=== PATIENT | male | born 1935 | race Caucasian/White ===

== ENCOUNTER 2017-01-07 19:15 | Inpatient (IN) | payer MEDICARE ==
[~2017-01-07] VITALS: Ht 162.6 cm; Wt 80.6 kg
[2017-01-07 17:26] VITALS: O2SAT 98
[~2017-01-07 19:15] MED LIST: CLOP75 PO; GEMF600T PO; PRIL10CA PO
[2017-01-07 19:17] VITALS: BP 142/65; PULSE 74; RESP 18; TEMP 97.9; O2SAT 95
[2017-01-07] MEDS ORDERED: AMIT10TA6 PO (19:29)
[2017-01-07] MEDS ORDERED: METO-426 PO (19:29)
[2017-01-07] MEDS ORDERED: LIPI40TA PO (19:29)
[2017-01-07] MEDS ORDERED: PLAV75TA29 PO (19:29)
[2017-01-07] MEDS ORDERED: GEMF600T PO (19:29)
[2017-01-07] MEDS ORDERED: OMEP20TA PO (19:29)
[2017-01-07] MEDS ORDERED: ASPI-110 PO (19:29)
[2017-01-07] MEDS ORDERED: SODIUM CHLORIDE 0.9% FLUSH 5 ML FLUSH IVF PRN (19:45)
--- NOTE | 2017-01-07 19:45 | PD ---
HPI Chief Complaint: Chest Pain Time Seen by Provider: 19:34 Travel History International Travel<30 days: No Contact w/Intl Traveler<30days: No Traveled to known affect area: No History of Present Illness HPI The patient's 81 years old. He suffers with COPD (he quit smoking 7 years ago following a [id number] smoking history), coronary artery disease with a stent placed a couple months prior in [place], hypertension, hyperlipidemia and CPAP. He uses oxygen as needed during the day. He uses CPAP at night secondary to sleep apnea. Yesterday he was walking and developed retrosternal chest pain. At its worst the pain was 6-7/10. In the ER the pain is 3/10. He has received a full dose of aspirin today. She also received nitroglycerin given by EMS just prior to ER arrival. He states the chest pain today feels different than the pain he had prior to his stent placement in [place]. He has been compliant with Plavix gemfibrozil Lipitor and metoprolol. There is no radiation of the pain. Exertional component has remained present prior to ER arrival. He also reports a pleuritic component states it feels as if there is a teacher. His chest in the region of the xiphoid process. He also reports fairly persistent phlegm production with coughing for months. He has had bilateral pulmonary lobectomies and also suffers from prostate cancer. [facility] Past Medical History Cardiovascular Problems: Yes High Cholesterol: Yes COPD: Yes Cerebrovascular Accident: Yes GERD: Yes Ulcer: Yes (BLEEDING ULCER) Past Surgical History Cardiac Surgery: Yes (stent in oct 2016) Genitourinary Surgery: Yes (PROSTATE) Other Surgery: Yes (lobectomy one left and two on right) Social History Alcohol Use: No Tobacco Use: No (quit 7 years ago) Substance Use: No Allergies-Medications (Allergen,Severity, Reaction): Coded Allergies: No Known Allergies (Unverified , 01/07/17) Reported Meds & Prescriptions Reported Meds & Active Scripts Active Reported Lipitor (Atorvastatin Calcium) 40 Mg Tab 40 Mg PO HS Aspirin 81 (Aspirin) 81 Mg Tabdr 81 Mg PO DAILY Amitriptyline (Amitriptyline HCl) 10 Mg Tab 10 Mg PO HS Metoprolol Tartrate 75 Mg Tab 75 Mg PO DAILY Plavix (Clopidogrel Bisulfate) 75 Mg Tab 75 Mg PO DAILY Omeprazole 20 Mg Tab 20 Mg PO DAILY Gemfibrozil 600 Mg Tab 600 Mg PO DAILY Take 30 minutes prior to breakfast and dinner. Review of Systems Except as stated in HPI: all other systems reviewed are Neg General / Constitutional: No: Fever, Chills Cardiovascular: Positive: Chest Pain or Discomfort, No: Syncope, Edema Respiratory: Positive: Cough, No: Shortness of Breath Neurologic: Positive: Dizziness Physical Exam Narrative GENERAL: 81-year-old male, no acute distress well-nourished well-developed, speaking full sentences SKIN: Warm and dry. HEAD: Atraumatic. Normocephalic. EYES: Pupils equal and round. No scleral icterus. No injection or drainage. ENT: No nasal bleeding or discharge. Mucous membranes pink and moist. NECK: Trachea midline. No JVD. CARDIOVASCULAR: Regular rate and rhythm. No murmur appreciated. RESPIRATORY: Coarse breath sounds present bilaterally. No tachypnea. No significant dyspnea. GASTROINTESTINAL: Abdomen soft, non-tender, nondistended. Hepatic and splenic margins not palpable. MUSCULOSKELETAL: No obvious deformities. No clubbing. No cyanosis. No edema. No sign of DVT involving either lower extremity. NEUROLOGICAL: Awake and alert. No obvious cranial nerve deficits. Motor grossly within normal limits. Normal speech. PSYCHIATRIC: Appropriate mood and affect; insight and judgment normal. Data Data Last Documented VS Vital Signs Date Time Temp Pulse Resp B/P Pulse Ox O2 Delivery O2 Flow Rate FiO2 01/07/17 21:36 Nasal Cannula 2 01/07/17 21:00 64 128/64 01/07/17 19:22 95 01/07/17 19:17 97.9 18 VS reviewed Orders Electrocardiogram (01/07/17 19:34) Basic Metabolic Panel (Bmp) (01/07/17 19:34) Ckmb (Isoenzyme) Profile (01/07/17 19:34) Complete Blood Count With Diff (01/07/17 19:34) Magnesium (Mg) (01/07/17 19:34) Prothrombin Time / Inr (Pt) (01/07/17 19:34) Act Partial Throm Time (Ptt) (01/07/17 19:34) Troponin I (01/07/17 19:34) Ecg Monitoring (01/07/17 19:34) Bilateral Bp Monitoring (01/07/17 19:34) Iv Access Insert/Monitor (01/07/17 19:34) Oximetry (01/07/17 19:34) Oxygen Administration (01/07/17 19:34) Sodium Chloride 0.9% Flush (Ns Flush) (01/07/17 19:45) Chest, Pa & Lat (01/07/17 19:34) CKMB (01/07/17 19:50) CKMB% (01/07/17 19:50) Ct Pulmonary Angiogram (01/07/17 21:23) Iohexol 350 Inj (Omnipaque 350 Inj) (01/07/17 22:25) Enoxaparin Inj (Lovenox Inj) (01/07/17 23:00) Blood Culture (01/07/17 22:49) Ceftriaxone Inj (Rocephin Inj) (01/07/17 23:00) Azithromycin Inj (Zithromax Inj) (01/07/17 23:00) Admit Order (Ed Use Only) (01/07/17 23:13) Labs Laboratory Tests Test 01/07/17 19:50 White Blood Count 7.4 TH/MM3 Red Blood Count 4.10 MIL/MM3 Hemoglobin 12.6 GM/DL Hematocrit 37.5 % Mean Corpuscular Volume 91.4 FL Mean Corpuscular Hemoglobin 30.7 PG Mean Corpuscular Hemoglobin 33.5 % Concent Red Cell Distribution Width 13.1 % Platelet Count 203 TH/MM3 Mean Platelet Volume 8.7 FL Neutrophils (%) (Auto) 59.4 % Lymphocytes (%) (Auto) 31.7 % Monocytes (%) (Auto) 7.6 % Eosinophils (%) (Auto) 0.6 % Basophils (%) (Auto) 0.7 % Neutrophils # (Auto) 4.4 TH/MM3 Lymphocytes # (Auto) 2.3 TH/MM3 Monocytes # (Auto) 0.6 TH/MM3 Eosinophils # (Auto) 0.0 TH/MM3 Basophils # (Auto) 0.1 TH/MM3 CBC Comment DIFF FINAL Differential Comment Prothrombin Time 11.3 SEC Prothromb Time International 1.0 RATIO Ratio Activated Partial 22.9 SEC Thromboplast Time Sodium Level 142 MEQ/L Potassium Level 3.9 MEQ/L Chloride Level 105 MEQ/L Carbon Dioxide Level 27.2 MEQ/L Anion Gap 10 MEQ/L Blood Urea Nitrogen 14 MG/DL Creatinine 1.11 MG/DL Estimat Glomerular Filtration 63 ML/MIN Rate Random Glucose 108 MG/DL Calcium Level 8.5 MG/DL Magnesium Level 2.2 MG/DL Total Creatine Kinase 134 U/L Creatine Kinase MB 1.5 NG/ML Troponin I LESS THAN 0.02 NG/ML MDM Medical Decision Making Medical Screen Exam Complete: Yes Emergency Medical Condition: Yes Differential Diagnosis NSTEMI, unstable angina, coronary vasospasm, PE, PTX, aortic dissection, pericarditis, myocarditis, endocarditis, PNA, esophageal disease, aneurysm, musculoskeletal etiologies, anxiety, cocaine/sympathomimetic abuse Narrative Course EKG: sinus, HR 70, Q waves II and aVF, no acute ischemic injury pattern Last [address] Angiography 01/07/172122 Signed Impressions: Service Date/Time: Saturday, January 07, 2017 22:00 - CONCLUSION: 1. Small pulmonary emboli on the right. Please see above. 2. Patchy airspace disease posteriorly in both lower lobes, nonspecific but most likely infectious or inflammatory. 3. Trace right pleural effusion. 4. Large hypodense lesion of the left hepatic lobe, indeterminate. Contrast-enhanced study of the abdomen is recommended non-emergently, preferably MRI with and without contrast. Hugh Gallego MD Chest X-Ray 01/07/17 1934 Signed Impressions: Service Date/Time: Saturday, January 07, 2017 20:15 - CONCLUSION: Suspected mass right hilum. CT the chest suggests a, preferably with intravenous contrast. There is mild patchy consolidation of both bases. Hugh Gallego MD CBC & BMP Diagram 01/07/17 19:50 Tn < 0.02 INR 1.0 The patient was notified of the hepatic lesion. We also discussed the diagnosis of PE and pneumonia. Lovenox started. Rocephin and azithromycin started. Case discussed with Dr. Anders for [facility]. Patient has remained hemodynamically stable throughout ER course. His pain improved while here without analgesia. Diagnosis Primary Impression: Chest pain Qualified Code: R07.9 - Chest pain, unspecified type Additional Impressions: PE (pulmonary thromboembolism) PNA (pneumonia) Qualified Code: J18.9 - Pneumonia of both lower lobes due to infectious organism Liver lesion Admitting Information Admitting Physician Requests: Admit Sarath Amador MD Jan 07, 2017 19:45
[2017-01-07 20:04] LABS: AUTOMATED NEUTROPHIL # 4.4 TH/MM3 (1.8-7.7); BASOPHIL # 0.1 TH/MM3 (0-0.2); BASOPHIL % 0.7 % (0.0-2.0); EOSINOPHIL % 0.6 % (0.0-4.0); HEMATOCRIT 37.5 % (39.0-51.0); HEMO FLAGS DIFF FINAL; LYMPH % 31.7 % (9.0-44.0); LYMPHOCYTE # 2.3 TH/MM3 (1.0-4.8); MEAN CELL VOLUME 91.4 FL (80.0-100.0); MEAN CORPUSCULAR HEMOGLOBIN 30.7 PG (27.0-34.0); MEAN CORPUSCULAR HGB CONC 33.5 % (32.0-36.0); MONO % 7.6 % (0.0-8.0); NEUT % 59.4 % (16.0-70.0); PLATELET COUNT 203 TH/MM3 (150-450); RED CELL DISTRIBUTION WIDTH 13.1 % (11.6-17.2); WHITE BLOOD COUNT 7.4 TH/MM3 (4.0-11.0)
[2017-01-07 20:11] LABS: APTT (PATIENT) 22.9 SEC (24.3-30.1); PROTHROMBIN TIME - PATIENT 11.3 SEC (9.8-11.6)
--- NOTE | 2017-01-07 20:28 | RADRPT ---
EXAM DATE/TIME: 01/07/2017 20:15 [facility] COMPARISON: Reports only CTA CHEST W 3D RECON, February 28, 2012, 17:29. CHEST SINGLE AP, February 28, 2012, 13:46. INDICATIONS : Chest pain for the past few days. MEDICAL HISTORY : Chronic obstructive pulmonary disease. Hypercholesterolemia. SURGICAL HISTORY : Cardiac stent. Lobectomy on left and right lobe. ENCOUNTER: Initial ACUITY: 1 day PAIN SCORE: 5/10 LOCATION: Bilateral chest. FINDINGS: There is masslike fullness in the region of the right hilum. There is mild, patchy consolidation of b oth bases. Tiny right pleural effusion suspected as well. No pneumothorax. Heart size within normal limits. CONCLUSION: Suspected mass right hilum. CT the chest suggests a, preferably with intravenous contrast. There is m ild patchy consolidation of both bases. Hugh Glalego MD on January 07, 2017 at 20:25 Board Certified Radiologist. This report was verified electronically.
[2017-01-07 20:49] LABS: ANION GAP 10 MEQ/L (5-15); BICARBONATE 27.2 MEQ/L (21.0-32.0); BLOOD UREA NITROGEN 14 MG/DL (7-18); CHLORIDE 105 MEQ/L (98-107); CREATINE KINASE 134 U/L (39-308); GLOMERULAR FILTRATION RATE 63 ML/MIN (>89); MAGNESIUM 2.2 MG/DL (1.5-2.5); POTASSIUM 3.9 MEQ/L (3.5-5.1); SODIUM (NA) 142 MEQ/L (136-145)
[2017-01-07 21:00] VITALS: BP 128/64; PULSE 64
[2017-01-07 21:02] LABS: CKMB 1.5 NG/ML (0.5-3.6)
[2017-01-07] MEDS ORDERED: IOHEXOL 350 MG/ML 10 ML VIAL (for RAD DIAG) IV ONE (22:25)
--- NOTE | 2017-01-07 22:35 | RADRPT ---
EXAM DATE/TIME: 01/07/2017 22:00 [facility] COMPARISON: Report only CTA CHEST W 3D RECON, February 28, 2012, 17:29. INDICATIONS : Chest pain; rule out pulmonary embolus. IV CONTRAST: 75 cc Omnipaque 350 (iohexol) IV RADIATION DOSE: 13.70 CTDIvol (mGy) MEDICAL HISTORY : Chronic obstructive pulmonary disease. Cardiovascular disease Carcinoma, prostate.CVA, cardiac stent SURGICAL HISTORY : Lobectomy. ENCOUNTER: Initial ACUITY: 1 day PAIN SCALE: 6/10 LOCATION: chest TECHNIQUE: Volumetric scanning of the chest was performed using a pulmonary embolism protocol MIP images were re constructed. Using automated exposure control and adjustment of the mA and/or kV according to patien t size, radiation dose was kept as low as reasonably achievable to obtain optimal diagnostic quality images. FINDINGS: I believe patient has had previous right upper lobectomy. Small amount of nonocclusive embolus seen i n the distal portion of the right main pulmonary artery, series 2 image 53. Small embolus also seen i n the right middle lobe branch, series 2 image 64. I don't see a pulmonary embolus on the left. Patchy areas of parenchymal infiltrate are seen of both lung bases, primarily posteriorly in the lower lobes. There is trace pleural effusion on the right. Normal heart size. There appears to be a stent in the left circumflex. No mediastinal, hilar or axillary lymphadenopathy demonstrated. Upper abdomen only poorly included on the study and there is a vague low attenuation lesion near the dome of the left hepatic lobe, measures at least 5.1 cm in size. This was not mentioned on the p rior CT pulmonary angiogram, presumably not present. CONCLUSION: 1. Small pulmonary emboli on the right. Please see above. 2. Patchy airspace disease posteriorly in both lower lobes, nonspecific but most likely infectious or inflammatory. 3. Trace right pleural effusion. 4. Large hypodense lesion of the left hepatic lobe, indeterminate. Contrast-enhanced study of the abd omen is recommended non-emergently, preferably MRI with and without contrast. Hugh Gallego MD on January 07, 2017 at 22:25 Board Certified Radiologist. This report was verified electronically.
[2017-01-07] MEDS ORDERED: AZITHROMYCIN INJ 500 MG in SODIUM CHLOR 0.9% 250 ML INJ 250 ML IV ONE (23:00)
[2017-01-07] MEDS ORDERED: cefTRIAXone INJ 1,000 MG in SODIUM CHLORIDE 0.9% INJ 100 ML IV ONE (23:00)
[2017-01-07] MEDS ORDERED: ENOXAPARIN SODIUM 80 MG/0.8 ML SYRINGE SQ ONE (23:00)
[2017-01-07] MEDS ORDERED: SODIUM CHLORIDE 0.9% FLUSH 5 ML FLUSH FLUSH PRN (23:30)
[2017-01-07] MEDS ORDERED: ONDANSETRON HCL 4 MG/2 ML VIAL IVP PRN (23:30)
[2017-01-07] MEDS ORDERED: BISACODYL 10 MG SUPP PR PRN (23:30)
[2017-01-07] MEDS ORDERED: ACETAMINOPHEN/HYDROcodone 325 MG/5 MG TAB PO PRN (23:30)
[2017-01-07] MEDS ORDERED: MORPHINE SULFATE 4 MG/ML INJ IV PRN (23:30)
--- NOTE | 2017-01-07 23:38 | HHI.HP ---
[facility] No Primary Care Physician Admission Diagnosis R PE, Bilateral PNA Diagnoses: (1) Chest pain Diagnosis: Principal (2) PE (pulmonary thromboembolism) Diagnosis: Principal (3) PNA (pneumonia) Diagnosis: Principal (4) Lung cancer Diagnosis: Principal (5) Liver lesion Diagnosis: Principal Travel History International Travel<30 Days: No Contact w/Intl Traveler <30 Da: No Traveled to Known Affected Are: No History of Present Illness This is an 81-year-old male with a PMH of Lung CA s/p Lobectomy, COPD, HTN, CAD s/p Stent 10/2016 and h/o DVT 6yrs ago who was brought to the ER by EMS w/ complaints of SOB and chest tightness since yesterday. States he walks 1 mile every day without difficulty, yesterday during his walk had c/o SOB and chest tightness. H/o Cardiac Stent in [place] in 10/2016, compliant w/ ASA/Plavix, states he follows w/ Lining Finisher, Rocket Test Fire Worker and Oncologist up in [place], lives there part of the year and in [facility] the other part of the year. Denies fever, chills or sick contacts. S/p ASA and NTG by EMS w/ some improvement en route. On arrival, BP 142/65, HR 74, O2 sat 95% on RA, Afebrile. CBC essentially unremarkable. Chemistry essentially unremarkable except for GFR 63. Troponin negative. EKG with no acute ischemia. CXR with suspected mass in right hilum, recommendation for CT Chest. CTA Pulm w/ small PE on right, patchy airspace disease bibasilar and large hypodense liver lesion w/ recommendation for outpatient MRI w/ and w/o contrast. Pt reports h/o DVT approx 6yrs ago following Lobectomy, was on Coumadin for 6 months and discontinued, no h/o DVT/ PE since that time. S/p Lovenox 80mg sq x1 in ER. Review of Systems Except as stated in HPI: all other systems reviewed are Neg ROS: 14 point review of systems otherwise negative. Past Family Social History Past Medical History PMH: Lung CA s/p Lobectomy, COPD, HTN, CAD s/p Stent 10/2016 and h/o DVT 6yrs ago Past Surgical History PAST SURGICAL HISTORY: Cardiac Stent 10/2016, Lobectomy Allergies: Coded Allergies: No Known Allergies (Unverified , 01/07/17) Family History PAST FAMILY HISTORY: Reviewed. No h/o DM or CAD Social History PAST SOCIAL HISTORY: Negative for alcohol, tobacco or drugs. Physical Exam Vital Signs Vital Signs Date Time Temp Pulse Resp B/P Pulse Ox O2 Delivery O2 Flow Rate FiO2 01/07/17 21:36 Nasal Cannula 2 01/07/17 21:00 64 128/64 01/07/17 19:22 95 Room Air 01/07/17 19: 97.9 74 18 142/65 95 Physical Exam PE: GENERAL: Pleasant elderly white male in no acute distress, presumably the stated age, intermittent wet cough. HEENT: PERRLA, EOMI. No scleral icterus or conjunctival pallor. No lid lag or facial droop. CARDIOVASCULAR: Regular rate and rhythm. No obvious murmurs to auscultation. No chest tenderness to palpation. RESPIRATORY: Occasional rhonchi, no wheezing. Clear to auscultation. Breath sounds equal bilaterally. GASTROINTESTINAL: Abdomen soft, non-tender, nondistended. BS normal. MUSCULOSKELETAL: Extremities without clubbing, cyanosis, or edema. No obvious deformities. NEUROLOGICAL: Awake, alert and oriented x4. No focal neurologic deficits. Moving both upper and lower extremities spontaneously. Laboratory Laboratory Tests Test 01/07/17 19:50 White Blood Count 7.4 Red Blood Count 4.10 Hemoglobin 12.6 Hematocrit 37.5 Mean Corpuscular Volume 91.4 Mean Corpuscular Hemoglobin 30.7 Mean Corpuscular Hemoglobin 33.5 Concent Red Cell Distribution Width 13.1 Platelet Count 203 Mean Platelet Volume 8.7 Neutrophils (%) (Auto) 59.4 Lymphocytes (%) (Auto) 31.7 Monocytes (%) (Auto) 7.6 Eosinophils (%) (Auto) 0.6 Basophils (%) (Auto) 0.7 Neutrophils # (Auto) 4.4 Lymphocytes # (Auto) 2.3 Monocytes # (Auto) 0.6 Eosinophils # (Auto) 0.0 Basophils # (Auto) 0.1 CBC Comment DIFF FINAL Differential Comment Prothrombin Time 11.3 Prothromb Time International 1.0 Ratio Activated Partial 22.9 Thromboplast Time Sodium Level 142 Potassium Level 3.9 Chloride Level 105 Carbon Dioxide Level 27.2 Anion Gap 10 Blood Urea Nitrogen 14 Creatinine 1.11 Estimat Glomerular Filtration 63 Rate Random Glucose 108 Calcium Level 8.5 Magnesium Level 2.2 Total Creatine Kinase 134 Creatine Kinase MB 1.5 Troponin I LESS THAN 0.02 Result Diagram: 01/07/17194901/07/171949 Assessment and Plan Problem List: (1) Chest pain ICD Code: R07.9 Status: Acute (2) PE (pulmonary thromboembolism) ICD Code: I26.99 Status: Acute (3) PNA (pneumonia) ICD Code: J18.9 Status: Acute (4) Lung cancer ICD Code: C34.90 Status: Acute (5) Liver lesion ICD Code: K76.9 Status: Acute Assessment and Plan A/P: 1. Chest Pain: h/o CAD s/p Cardiac Stent 10/2016 in [place], follows w/ Lining Finisher back home. Chest pain likey secondary to PNA/PE, however will rule out ACS. Initial trop negative, EKG w/ no acute ischemia. Check serial cardiac enzymes, resume home ASA/Plavix, Statin and B-ignacio. MS prn for chest pain. 2. PE: CXR w/ questionable right hilar mass, CTA Pulm w/ small PE on right and patchy airspace disease, images reviewed by me. H/o DVT 6yrs ago following Lobectomy, s/p Coumadin x6 months, no recurrent DVT/PE since that time. + intermittent lower extremity cramping. O2 sat stable. S/p Lovenox 80mg sq x1 in ER, continue w/ Lovenox q12h and initiation of chronic anticoagulation, Symbicort/DuoNeb prn for bronchospasm. Check Echo to eval for right heart strain. 3. PNA: CTA Pulm w/ bibasilar consolidations, +wet non-productive cough on exam and rhonchi, S/p Rocephin/Zithro in ER, continue IV Abx, DuoNeb prn. 4. Lung CA: s/p Lobectomy 6yrs ago, following w/ Oncologist in [place], currently stable per pt. 5. Liver Lesion: CTA Pulm w/ evidence of large hypodense lesion of left hepatic lobe, recommendation for MRI Abd/Pelvis w/ and w/o contrast, findings discussed w/ patient and he is now aware of liver lesion. States he plans to follow up w/ his physicians in [place] when he returns home. 6. DVT Prophylaxis: On Lovenox for acute PE. 7. Social work for d/c planning as needed. 8. Case discussed w/ ER physician at length. Physician Certification 2 Midnight Certification Type: Admission for Inpatient Services Order for Inpatient Services The services are ordered in accordance with Medicare regulations or non- Medicare payer requirements, as applicable. In the case of services not specified as inpatient-only, they are appropriately provided as inpatient services in accordance with the 2-midnight benchmark. Estimated LOS (days): 2 days is the estimated time the patient will need to remain in the hospital, assuming treatment plan goals are met and no additional complications. Post-Hospital Plan: Not yet determined Virgie Anders MD Jan 07, 2017 23:38
[2017-01-08] VITALS (11 sets, daily range): BP systolic 113–152; BP diastolic 60–78; PULSE 63–103; RESP 16–20; TEMP 96.6–98.1; O2SAT 93–100
[2017-01-08] MEDS: RESP: ALBUTEROL 2.5 MG/IPRATROPIUM 0.5 MG NEB (PRN) NEB ×2 (00:40→03:38)
[2017-01-08 05:25] LABS: AUTOMATED NEUTROPHIL # 4.7 TH/MM3 (1.8-7.7); BASOPHIL % 0.5 % (0.0-2.0); EOSINOPHIL % 0.6 % (0.0-4.0); HEMATOCRIT 37.3 % (39.0-51.0); HEMO FLAGS DIFF FINAL; LYMPH % 30.6 % (9.0-44.0); LYMPHOCYTE # 2.4 TH/MM3 (1.0-4.8); MEAN CELL VOLUME 90.7 FL (80.0-100.0); MEAN CORPUSCULAR HEMOGLOBIN 30.7 PG (27.0-34.0); MEAN CORPUSCULAR HGB CONC 33.8 % (32.0-36.0); MONO % 9.7 % (0.0-8.0); NEUT % 58.6 % (16.0-70.0); PLATELET COUNT 200 TH/MM3 (150-450); RED BLOOD COUNT 4.11 MIL/MM3 (4.50-5.90); RED CELL DISTRIBUTION WIDTH 13.1 % (11.6-17.2); WHITE BLOOD COUNT 7.9 TH/MM3 (4.0-11.0)
[2017-01-08 05:35] LABS: ALT (GPT) 21 U/L (12-78); ANION GAP 9 MEQ/L (5-15); AST (GOT) 12 U/L (15-37); BICARBONATE 25.8 MEQ/L (21.0-32.0); BLOOD UREA NITROGEN 13 MG/DL (7-18); CHLORIDE 107 MEQ/L (98-107); GLOMERULAR FILTRATION RATE 71 ML/MIN (>89); POTASSIUM 3.6 MEQ/L (3.5-5.1); SODIUM (NA) 142 MEQ/L (136-145)
[2017-01-08 05:48] LABS: ALKALINE PHOSPHATASE 60 U/L (45-117); TOTAL BILIRUBIN ADULT 0.5 MG/DL (0.2-1.0)
[2017-01-08] MEDS: METOPROLOL TARTRATE 25 MG TAB PO SCH ×2 (09:00→20:50)
[2017-01-08] MEDS ORDERED: METOPROLOL TARTRATE 25 MG TAB PO SCH (09:00)
[2017-01-08] MEDS: CLOPIDOGREL 75 MG TAB PO SCH (09:00)
--- NOTE | 2017-01-08 09:24 | HHI.PR ---
Subjective Remarks Says he feels much better. Less sob. Has cough , clear sputum production no bloof in it. No chest rush . No n/v/d/c. Sas he has O2 at home and is using as need. Says he has been on coumadin before and had to stay in the hospital for 21 days for INR to be therapeutic, and he did not like it. Discussed options to anticoagulation. Objective Vitals Vital Signs Date Time Temp Pulse Resp B/P Pulse Ox O2 Delivery O2 Flow Rate FiO2 01/08/17 06:05 96.8 90 19 152/77 96 01/08/17 04:00 82 16 115/74 98 01/08/17 00:41 97 Nasal Cannula 2.00 01/08/17 00:00 68 16 120/70 98 Nasal Cannula 2 01/07/17 21:36 Nasal Cannula 2 01/07/17 21:00 64 128/64 01/07/17 19:22 95 Room Air 01/07/17 19:17 97.9 74 18 142/65 95 I/O 01/07/17 01/07/17 01/07/17 01/08/17 01/08/17 01/08/17 07:00 15:00 23:00 07:00 15:00 23:00 Intake Total 120 ml Balance 120 ml Intake Oral 120 ml Result Diagram: 01/08/1731101/08/[address] Angiography 01/07/172122 Signed Impressions: Service Date/Time: Saturday, January 07, 2017 22:00 - CONCLUSION: 1. Small pulmonary emboli on the right. Please see above. 2. Patchy airspace disease posteriorly in both lower lobes, nonspecific but most likely infectious or inflammatory. 3. Trace right pleural effusion. 4. Large hypodense lesion of the left hepatic lobe, indeterminate. Contrast-enhanced study of the abdomen is recommended non-emergently, preferably MRI with and without contrast. Hugh Gallego MD Chest X-Ray 01/07/171933 Signed Impressions: Service Date/Time: Saturday, January 07, 2017 20:15 - CONCLUSION: Suspected mass right hilum. CT the chest suggests a, preferably with intravenous contrast. There is mild patchy consolidation of both bases. Hugh Gallego MD Objective Remarks GENERAL: Pleasant elderly 81 yo male in no acute distress, appears tired. HEENT: PERRLA, EOMI. No scleral icterus or conjunctival pallor. No lid lag or facial droop. CARDIOVASCULAR: Regular rate and rhythm. No obvious murmurs to auscultation. No chest tenderness to palpation. RESPIRATORY: Occasional rhonchi, no wheezing. Clear to auscultation. Breath sounds equal bilaterally. GASTROINTESTINAL: Abdomen soft, non-tender, nondistended. BS normal. MUSCULOSKELETAL: Extremities without clubbing, cyanosis, or edema. No obvious deformities. NEUROLOGICAL: Awake, alert and oriented x4. No focal neurologic deficits. Moving both upper and lower extremities spontaneously. A/P Problem List: (1) Chest pain ICD Code: R07.9 Status: Acute (2) PE (pulmonary thromboembolism) ICD Code: I26.99 Status: Acute (3) PNA (pneumonia) ICD Code: J18.9 Status: Acute (4) Lung cancer ICD Code: C34.90 Status: Acute (5) Liver lesion ICD Code: K76.9 Status: Acute Assessment and Plan Chest Pain, pleuritic: h/o CAD s/p Cardiac Stent 10/2016 in [place], follows w/ Feed Preparation Operator back home. Chest pain likey secondary to PNA/PE, however will rule out ACS. Initial trop negative, EKG w/ no acute ischemia. Check serial cardiac enzymes, resume home ASA/Plavix, Statin and B-ignacio. MS prn for chest pain. PE: CXR w/ questionable right hilar mass, CTA Pulm w/ small PE on right and patchy airspace disease, images reviewed by me. H/o DVT 6yrs ago following Lobectomy, s/p Coumadin x6 months, no recurrent DVT/PE since that time. + intermittent lower extremity cramping. O2 sat stable. S/p Lovenox 80mg sq x1 in ER, continue w/ Lovenox q12h and initiation of chronic anticoagulation, Symbicort/DuoNeb prn for bronchospasm. Check Echo to eval for right heart strain. PNA: CTA Pulm w/ bibasilar consolidations, +wet non-productive cough on exam and rhonchi, S/p Rocephin/Zithro in ER, continue IV Abx, DuoNeb prn. Lung CA: s/p Lobectomy 6yrs ago, following w/ Oncologist in [place], currently stable per pt. Chronic respiratory failure. Cont O2 supplement. Liver Lesion: CTA Pulm w/ evidence of large hypodense lesion of left hepatic lobe, recommendation for MRI Abd/Pelvis w/ and w/o contrast, findings discussed w/ patient and he is now aware of liver lesion. States he plans to follow up w / his physicians in [place] when he returns home. DVT Prophylaxis: On Lovenox for acute PE. Cm for d/c planning as needed. Discussed with the patient, nurse. Ava Chavez MD Jan 08, 2017 09:24
[2017-01-08] MEDS: PANTOPRAZOLE SOD 20 MG DELAYED RELEASE TAB PO SCH (09:34)
[2017-01-08] MEDS: SODIUM CHLORIDE 0.9% FLUSH 5 ML FLUSH FLUSH SCH ×2 (09:35→20:49)
[2017-01-08] MEDS: ASPIRIN EC 81 MG TABEC PO SCH (09:35)
[2017-01-08] MEDS: BUDESONIDE-FORMOTEROL 160/4.5 MCG INHALER INH SCH ×2 (09:35→20:49)
[2017-01-08] MEDS: GEMFIBROZIL 600 MG TAB PO SCH (09:35)
[2017-01-08] MEDS: ENOXAPARIN SODIUM 80 MG/0.8 ML SYRINGE SQ SCH ×2 (11:18→23:37)
[2017-01-08] MEDS ORDERED: RESP: ALBUTEROL 2.5 MG/IPRATROPIUM 0.5 MG NEB (PRN) NEB (13:30)
[2017-01-08] MEDS: ACETAMINOPHEN 325 MG TAB PO PRN ×2 (16:16→23:38)
--- NOTE | 2017-01-08 19:20 | EKG ---
Date Performed: 01/07/2017 Time Performed: 19:17:05 PTAGE: 81 years EKG: Sinus rhythm LOW QRS VOLTAGE IN PRECORDIAL LEADS POSSIBLE INFERIOR MYOCARDIAL INFARCTION SINCE PREVIOUS TRACING 0 02/28/2012, Q WAVES IS MUCH DEEPER IN LEADS 3 AND THERE IS NOW A TINY Q-WAVE IN LEAD AVF. THIS IS NOT A CERTAINITY FOR INFERIOR MYOCARDIAL INFARCTION, BUT AT LEAST SHOULD BE CONSIDERED. OTHERWISE NO FRAIRE GE. BORDERLINE ECG PREVIOUS TRACING : 02/28/2012 21.34 DOCTOR: Michele Quiroga Interpretating Date/Time 01/08/2017 19:19:24
[2017-01-08] MEDS: AMITRIPTYLINE HCL 10 MG TAB PO SCH (20:50)
[2017-01-08] MEDS: ATORVASTATIN 40 MG TAB PO SCH (20:50)
[2017-01-08] MEDS: AZITHROMYCIN INJ 500 MG in SODIUM CHLOR 0.9% 250 ML INJ 250 ML IV SCH (23:40)
[2017-01-09] VITALS: BP 136/68; PULSE 67; RESP 17; TEMP 96.7; O2SAT 97
[2017-01-09] MEDS: cefTRIAXone INJ 1,000 MG in SODIUM CHLORIDE 0.9% INJ 100 ML IV SCH ×2 (01:24→21:54)
[2017-01-09 04:00] VITALS: BP 118/64; PULSE 64; RESP 19; TEMP 96.6; O2SAT 98
[2017-01-09 07:12] LABS: AUTOMATED NEUTROPHIL # 3.5 TH/MM3 (1.8-7.7); BASOPHIL % 0.8 % (0.0-2.0); EOSINOPHIL # 0.1 TH/MM3 (0-0.4); EOSINOPHIL % 1.9 % (0.0-4.0); HEMATOCRIT 36.9 % (39.0-51.0); HEMO FLAGS DIFF FINAL; LYMPH % 27.4 % (9.0-44.0); LYMPHOCYTE # 1.6 TH/MM3 (1.0-4.8); MEAN CELL VOLUME 91.1 FL (80.0-100.0); MEAN CORPUSCULAR HEMOGLOBIN 30.6 PG (27.0-34.0); MEAN CORPUSCULAR HGB CONC 33.5 % (32.0-36.0); MONO % 10.9 % (0.0-8.0); PLATELET COUNT 199 TH/MM3 (150-450); RED BLOOD COUNT 4.05 MIL/MM3 (4.50-5.90); RED CELL DISTRIBUTION WIDTH 13.4 % (11.6-17.2)
[2017-01-09] MEDS ORDERED: CEFT500T3 PO (07:14)
[2017-01-09] MEDS ORDERED: RIVA1TAB PO (07:14)
--- NOTE | 2017-01-09 07:16 | HHI.DCPOC ---
Discharge Care Plan Goals to Promote Your Health * To prevent worsening of your condition and complications * To maintain your health at the optimal level Directions to Meet Your Goals Take your medications as prescribed Follow your dietary instruction Follow activity as directed Keep your appointments as scheduled Take your immunizations and boosters as scheduled If your symptoms worsen call your PCP, if no PCP go to Urgent Care Center or Emergency Room Smoking is Dangerous to Your Health. Avoid second hand smoke Call the 24-hour hour crisis hotline for domestic abuse at Ava Chavez MD Jan 09, 2017 07:16
--- NOTE | 2017-01-09 07:16 | HHI.DS ---
Discharge Summary Admission Date Jan 07, 2017 at 23:14 Discharge Date: Jan 10, 2017 Admitting Diagnosis R PE, Bilateral PNA (1) Chest pain ICD Code: R07.9 (2) PE (pulmonary thromboembolism) ICD Code: I26.99 (3) PNA (pneumonia) ICD Code: J18.9 (4) Lung cancer ICD Code: C34.90 (5) Liver lesion ICD Code: K76.9 Procedures none Brief History - From Admission This is an 81-year-old male with a PMH of Lung CA s/p Lobectomy, COPD, HTN, CAD s/p Stent 10/2016 and h/o DVT 6yrs ago who was brought to the ER by EMS w/ complaints of SOB and chest tightness since yesterday. States he walks 1 mile every day without difficulty, yesterday during his walk had c/o SOB and chest tightness. H/o Cardiac Stent in [place] in 10/2016, compliant w/ ASA/Plavix, states he follows w/ Middle School Director, Manager [employer] and Oncologist up in [place], lives there part of the year and in [facility] the other part of the year. Denies fever, chills or sick contacts. S/p ASA and NTG by EMS w/ some improvement en route. On arrival, BP 142/65, HR 74, O2 sat 95% on RA, Afebrile. CBC essentially unremarkable. Chemistry essentially unremarkable except for GFR 63. Troponin negative. EKG with no acute ischemia. CXR with suspected mass in right hilum, recommendation for CT Chest. CTA Pulm w/ small PE on right, patchy airspace disease bibasilar and large hypodense liver lesion w/ recommendation for outpatient MRI w/ and w/o contrast. Pt reports h/o DVT approx 6yrs ago following Lobectomy, was on Coumadin for 6 months and discontinued, no h/o DVT/ PE since that time. S/p Lovenox 80mg sq x1 in ER. CBC/BMP: 01/09/17 0535 01/08/17 0312 Significant Findings Laboratory Tests Test 3/09/1501/08/17 01/08/17 01/09/17 19:50 00:15 03:12 05:35 Red Blood Count 4.10 MIL/MM3 4.11 MIL/MM3 4.05 MIL/MM3 (4.50-5.90) (4.50-5.90) (4.50-5.90) Hemoglobin 12.6 GM/DL 12.6 GM/DL 12.4 GM/DL (13.0-17.0) (13.0-17.0) (13.0-17.0) Hematocrit 37.5 % 37.3 % 36.9 % (39.0-51.0) (39.0-51.0) (39.0-51.0) Activated Partial 22.9 SEC Thromboplast Time (24.3-30.1) Estimat Glomerular Filtration 63 ML/MIN (>89) 71 ML/MIN (>89) Rate Random Glucose 108 MG/DL 116 MG/DL (74-106) (74-106) Troponin I LESS THAN 0.02 LESS THAN 0.02 LESS THAN 0.02 NG/ML NG/ML NG/ML (0.02-0.05) (0.02-0.05) (0.02-0.05) Monocytes (%) (Auto) 9.7 % (0.0-8.0) 10.9 % (0.0-8.0) Aspartate Amino Transf 12 U/L (15-37) (AST/SGOT) Imaging Last Impressions CT Angiography 01/07/172122 Signed Impressions: Service Date/Time: Saturday, January 07, 2017 22:00 - CONCLUSION: 1. Small pulmonary emboli on the right. Please see above. 2. Patchy airspace disease posteriorly in both lower lobes, nonspecific but most likely infectious or inflammatory. 3. Trace right pleural effusion. 4. Large hypodense lesion of the left hepatic lobe, indeterminate. Contrast-enhanced study of the abdomen is recommended non-emergently, preferably MRI with and without contrast. Hugh Gallego MD Chest X-Ray 01/07/17 193 Signed Impressions: Service Date/Time: Saturday, January 07, 2017 20:15 - CONCLUSION: Suspected mass right hilum. CT the chest suggests a, preferably with intravenous contrast. There is mild patchy consolidation of both bases. Hugh Gallego MD PE at Discharge GENERAL: Pleasant elderly 81 yo male in no acute distress, appears tired. HEENT: PERRLA, EOMI. No scleral icterus or conjunctival pallor. No lid lag or facial droop. CARDIOVASCULAR: Regular rate and rhythm. No obvious murmurs to auscultation. No chest tenderness to palpation. RESPIRATORY: Occasional rhonchi, no wheezing. Clear to auscultation. Breath sounds equal bilaterally. GASTROINTESTINAL: Abdomen soft, non-tender, nondistended. BS normal. MUSCULOSKELETAL: Extremities without clubbing, cyanosis, or edema. No obvious deformities. NEUROLOGICAL: Awake, alert and oriented x4. No focal neurologic deficits. Moving both upper and lower extremities spontaneously. Pt update on day of discharge Feels much better. Ambulating in the room . No n/v/d/c. Denies chest pain. SOB improved. Clear sputum production no blood in it. Says he wants to follow up with his lung doctor, cardiology and oncology in [place] Hospital Course 50yo female with right hydronephrosis and RLQ pain and mass Right lower quadrant abdominal pain Right lower cystic abd mass Right hydronephrosis ESRD on HD M/W/F night CT Ab/Pel reviewed findings discussed with Er physician. Mild right hydronephrosis and hydroureter, no obstructing stone. Some thickening noted on distal ureter. 4.5cm right inguinal cystic mass. Right lower abdominal mass 4.5 cm cyctic mass less likely to cause right hydronephrosis. Seen by Dr Odonnell urology, appreciate recommendations Per Dr Odonnell urology patient would benefit from a Nuclear medicine renal scan or CT Urogram to assess for obstruction, however given her ESRD and HD, this study would likely offer limited benefit Getting HD Consult nephrology for HD Consult urology Consult gen surg for evaluation of mass Pain meds per pain scale DVt ppx with heparin Discussed Condition With patient, nurse Patient improved, he was discharged in fairly stable condition. Patient was adviced to follow up as OP with his PCP, pulm doctor, cardiology and with his hem/onc , all his doctors are in [place]. Patient says he will live to [place] in 2 weeks. Pt Condition on Discharge: Fair Discharge Disposition: Disch w/ Home Health Serv Discharge Time: > 30 minutes Discharge Instructions Follow up Referrals: PCP Follow-up - 3-5 Days Pulmonology - 1 Week New Medications: Cefuroxime (Ceftin) 500 Mg Tab 500 MG PO BID Infection #14 Ref 0 TAB Guaifenesin ER 12 HR (Mucinex ER 12 HR) 600 Mg Chata 600 MG PO BID Chest Congestion/Cough #10 Ref 0 TAB Rivaroxaban Starter Pack 15 & 20 mg (Xarelto Starter Pack 15 & 20 mg) 1 Tab Tab 1 TAB PO DIRECTED Blood Clot Prevention #60 Ref 0 PACK Continued Medications: Amitriptyline (Amitriptyline) 10 Mg Tab 10 MG PO HS Control Depression #30 Ref [address] (Aspirin 81) 81 Mg Tabdr 81 MG PO DAILY Ref 0 TAB Atorvastatin (Lipitor) 40 Mg Tab 40 MG PO HS Cholesterol Management #30 Ref 0 TAB Clopidogrel (Plavix) 75 Mg Tab 75 MG PO DAILY Blood Clot Prevention #30 Ref 0 TAB Gemfibrozil (Gemfibrozil) 600 Mg Tab 600 MG PO DAILY Take 30 minutes prior to breakfast and dinner. #60 Ref 0 TAB Metoprolol Tartrate (Metoprolol Tartrate) 75 Mg Tab 25 MG PO BID #30 Ref 0 TAB Omeprazole (Omeprazole) 20 Mg Tab 20 MG PO DAILY #30 Ref 0 TAB Ava Chavez MD Jan 09, 2017 07:16
--- NOTE | 2017-01-09 07:19 | HHI.FF ---
Face to Face Verification Diagnosis: (1) PE (pulmonary thromboembolism) (2) Lung cancer (3) Chest pain (4) Liver lesion (5) PNA (pneumonia) Physical Therapy Order: Evaluate and Treat Home Health Nursing Order: Medical education Signs/symptoms of disease process Medication education-adverse effect Nursing assessment with vital signs I have seen patient Agustin Delgado on 01/09/17. My clinical findings support the need for the requested home health care services because: Ltd mobility - disease progression Patient has SOB I certify that my clinical findings support that this patient is homebound because: Post-op weakness Ava Chavez MD Jan 09, 2017 07:19 Ava Chavez MD Jan 09, 2017 07:19
[2017-01-09 07:24] LABS: BICARBONATE 26.6 MEQ/L (21.0-32.0); POTASSIUM 3.9 MEQ/L (3.5-5.1)
[2017-01-09 08:00] VITALS: BP 127/70; PULSE 84; RESP 18; TEMP 97.6; O2SAT 97
[2017-01-09] MEDS ORDERED: MUCI600T PO (08:18)
[2017-01-09] MEDS: BUDESONIDE-FORMOTEROL 160/4.5 MCG INHALER INH SCH ×2 (09:17→21:56)
[2017-01-09] MEDS: GEMFIBROZIL 600 MG TAB PO SCH (09:17)
[2017-01-09] MEDS: SODIUM CHLORIDE 0.9% FLUSH 5 ML FLUSH FLUSH SCH ×2 (09:17→21:59)
[2017-01-09] MEDS: ASPIRIN EC 81 MG TABEC PO SCH (09:17)
[2017-01-09] MEDS: PANTOPRAZOLE SOD 20 MG DELAYED RELEASE TAB PO SCH (09:18)
[2017-01-09] MEDS: METOPROLOL TARTRATE 25 MG TAB PO SCH ×2 (09:18→21:56)
[2017-01-09] MEDS: CLOPIDOGREL 75 MG TAB PO SCH (09:18)
[2017-01-09] MEDS: ENOXAPARIN SODIUM 80 MG/0.8 ML SYRINGE SQ SCH ×2 (11:52→22:00)
[2017-01-09 12:00] VITALS: BP 121/69; PULSE 84; RESP 18; TEMP 95.5; O2SAT 97
--- NOTE | 2017-01-09 12:32 | HHI.PR ---
Subjective Remarks Says she feels tired and he is sob. not much cough but feels congested. cough is clear. No fever or chills. Says he doesn't feel comfortable to go home. Will consult PT Objective Vitals Vital Signs Date Time Temp Pulse Resp B/P Pulse Ox O2 Delivery O2 Flow Rate FiO2 01/09/17 08:00 97.6 84 18 127/70 97 01/09/17 04:00 96.6 64 19 118/64 98 01/09/17 00:00 96.7 67 17 136/68 97 01/08/17 20:07 76 01/08/17 20:00 96.6 72 18 136/69 100 01/08/17 15:50 97.9 77 20 120/78 95 01/08/17 14:05 76 I/O 01/08/17 01/08/17 01/08/17 01/09/17 01/09/17 01/09/17 07:00 15:00 23:00 07:00 15:00 23:00 Intake Total 120 ml 360 ml 480 ml 860 ml 360 ml Balance 120 ml 360 ml 480 ml 860 ml 360 ml Intake Oral 120 ml 360 ml 480 ml 480 ml 360 ml IV Total 380 ml # Voids 2 3 3 1 # Bowel Movements 0 Result Diagram: 01/09/17 0535 01/09/17 [address] Angiography 01/07/172122 Signed Impressions: Service Date/Time: Saturday, January 07, 2017 22:00 - CONCLUSION: 1. Small pulmonary emboli on the right. Please see above. 2. Patchy airspace disease posteriorly in both lower lobes, nonspecific but most likely infectious or inflammatory. 3. Trace right pleural effusion. 4. Large hypodense lesion of the left hepatic lobe, indeterminate. Contrast-enhanced study of the abdomen is recommended non-emergently, preferably MRI with and without contrast. Hugh Gallego MD Chest X-Ray 01/07/17 193 Signed Impressions: Service Date/Time: Saturday, January 07, 2017 20:15 - CONCLUSION: Suspected mass right hilum. CT the chest suggests a, preferably with intravenous contrast. There is mild patchy consolidation of both bases. Hugh Gallego MD Objective Remarks GENERAL: Pleasant elderly 81 yo male in no acute distress, appears tired. HEENT: PERRLA, EOMI. No scleral icterus or conjunctival pallor. No lid lag or facial droop. CARDIOVASCULAR: Regular rate and rhythm. No obvious murmurs to auscultation. No chest tenderness to palpation. RESPIRATORY: Occasional rhonchi, no wheezing. Clear to auscultation. Breath sounds equal bilaterally. GASTROINTESTINAL: Abdomen soft, non-tender, nondistended. BS normal. MUSCULOSKELETAL: Extremities without clubbing, cyanosis, or edema. No obvious deformities. NEUROLOGICAL: Awake, alert and oriented x4. No focal neurologic deficits. Moving both upper and lower extremities spontaneously. A/P Problem List: (1) Chest pain ICD Code: R07.9 Status: Acute (2) PE (pulmonary thromboembolism) ICD Code: I26.99 Status: Acute (3) PNA (pneumonia) ICD Code: J18.9 Status: Acute (4) Lung cancer ICD Code: C34.90 Status: Acute (5) Liver lesion ICD Code: K76.9 Status: Acute Assessment and Plan Chest Pain, pleuritic: h/o CAD s/p Cardiac Stent 10/2016 in [place], follows w/ [employer] back home. Chest pain likey secondary to PNA/PE, however will rule out ACS. Initial trop negative, EKG w/ no acute ischemia. Check serial cardiac enzymes, resume home ASA/Plavix, Statin and B-ignacio. MS prn for chest pain. PE: CXR w/ questionable right hilar mass, CTA Pulm w/ small PE on right and patchy airspace disease, images reviewed by me. H/o DVT 6yrs ago following Lobectomy, s/p Coumadin x6 months, no recurrent DVT/PE since that time. + intermittent lower extremity cramping. O2 sat stable. S/p Lovenox 80mg sq x1 in ER, continue w/ Lovenox q12h and initiation of chronic anticoagulation, Symbicort/DuoNeb prn for bronchospasm. Check Echo to eval for right heart strain. PNA: CTA Pulm w/ bibasilar consolidations, +wet non-productive cough on exam and rhonchi, S/p Rocephin/Zithro in ER, continue IV Abx, DuoNeb prn. Lung CA: s/p Lobectomy 6yrs ago, following w/ Oncologist in [place], currently stable per pt. Chronic respiratory failure. Cont O2 supplement. Liver Lesion: CTA Pulm w/ evidence of large hypodense lesion of left hepatic lobe, recommendation for MRI Abd/Pelvis w/ and w/o contrast, findings discussed w/ patient and he is now aware of liver lesion. States he plans to follow up w / his physicians in [place] when he returns home. Consult PT DVT Prophylaxis: On Lovenox for acute PE. Cm for d/c planning as needed. Discussed with the patient, nurse. Ava Chavez MD Jan 09, 2017 12:32
[2017-01-09 16:00] VITALS: BP 110/61; PULSE 66; RESP 18; TEMP 96.5; O2SAT 99
--- NOTE | 2017-01-09 16:04 | EC ---
Study Study Date:01/09/2017 STUDY CONCLUSIONS SUMMARY - Left ventricle: The cavity size was normal. Wall thickness was normal. Systolic function was normal. The estimated ejection fraction was in the range of 55% to 60%. Wall motion was normal; there were no regional wall motion abnormalities. Doppler parameters are consistent with abnormal left ventricular relaxation (grade 1 diastolic dysfunction). - Tricuspid valve: Mild regurgitation. - Pulmonary arteries: PA peak pressure: 43mm Hg (S). If LV function is below 40, please consider prescribing an ACEI or ARB or document rationale for non-use. PROCEDURE DATA STUDY STATUS: Elective. Procedure: Transthoracic echocardiography. Image quality was good. Scanning was performed from the parasternal, apical, and subcostal acoustic windows. Study completion: The patient tolerated the procedure well. Transthoracic echocardiography. M-mode, complete 2D, complete spectral Doppler, and color Doppler. Height: Height: 64in. Weight: Weight: 175.6lb. Body mass index: BMI: 30.2kg/m^2. Body surface area: BSA: 1.85m^2. Patient status: Inpatient. CARDIAC ANATOMY LEFT VENTRICLE: The cavity size was normal. Wall thickness was normal. There was no hypertrophy. Systolic function was normal. The estimated ejection fraction was in the range of 55% to 60%. Wall motion was normal; there were no regional wall motion abnormalities. Doppler parameters are consistent with abnormal left ventricular relaxation (grade 1 diastolic dysfunction). AORTIC VALVE: The valve appears to be grossly normal. Doppler: There was no stenosis. No significant regurgitation. Valve area: 1.65cm^2(VTI). Indexed valve area: 0.89cm^2/m^2 (VTI). Valve area: 1.68cm^2 (Vmax). Indexed valve area: 0.91cm^2/m^2 (Vmax). Mean gradient: 3mm Hg (S). MITRAL VALVE: The valve appears to be grossly normal. Doppler: There was no evidence for stenosis. Trace regurgitation. Peak gradient: 2mm Hg (D). LEFT ATRIUM: The atrium was normal in size. RIGHT VENTRICLE: The cavity size was normal. PULMONIC VALVE: Not well visualized. Doppler: There was no evidence for stenosis. Trace regurgitation. TRICUSPID VALVE: The valve appears to be grossly normal. Doppler: There was no evidence for stenosis. Mild regurgitation. PERICARDIUM: There was no pericardial effusion. Patient weight: 175.6lb _Ejection fraction:_ 65-75% _Fractional shortening:_ 32% up to 5Kg 5-11.5Kg 11.6-22.9Kg 23-45Kg 45-57Kg Aortic Root 7-13 <17 13-22 17-27 17-27 LA diam 6-13 <23 24-38 33-47 37-40 RVID 10-17 7-15 7-15 7-18 8-17 LVIDd 12-22 <32 24-38 33-47 37-40 LVPW 2-4 3-6 5-7 6-8 7-8 IVS 2-4 3-6 5-7 6-8 7-8 BASIC MEASUREMENTS ADULT NORMAL Left ventricle LV internal dimension, ED, chordal *36.4 mm 43-52 level, PLAX LV internal dimension, ES, chordal 26 mm 23-38 level, PLAX Fractional shortening, chordal level, *29 % >29 PLAX LV posterior wall thickness, ED 10.3 mm IVS/LVPW ratio, ED 0.92 <1.3 Ventricular septum Septal thickness, ED 9.44 mm Aortic valve Leaflet separation 20 mm 15-26 Aorta Root diameter, ED 34 mm Left atrium Anterior-posterior dimension 30 mm Anterior-posterior dimension index 1.62 cm/m^2 <2.2 BASIC MEASUREMENTS ADULT NORMAL Aortic valve Leaflet separation 20 mm 15-26 DOPPLER MEASUREMENTS ADULT NORMAL Main pulmonary artery Pressure, S *43 mm Hg =30 Aortic valve Peak velocity, S 125 cm/s Mean velocity, S 84.4 cm/s VTI, S 26.4 cm Mean gradient, S 3 mm Hg Valve area, VTI 1.65 cm^2 Valve area index, VTI 0.89 cm^2/m^2 Valve area, Vmax 1.68 cm^2 Valve area index, Vmax 0.91 cm^2/m^2 Mitral valve Peak E-wave velocity 72.6 cm/s Peak A-wave velocity 97.2 cm/s Deceleration time *268 ms 150-230 Peak gradient, D 2 mm Hg Peak E/A ratio 0.7 Tricuspid valve Regurgitant peak velocity 276 cm/s Peak RV-RA gradient, S 30 mm Hg Maximal regurgitant velocity 276 cm/s Systemic veins Estimated CVP 10 mm Hg Right ventricle RV pressure, S *44 mm Hg <30 Pulmonic valve Peak velocity, S 55.6 cm/s LEGEND: Mean values are shown as u=mean value. Asterisk (*) sr values outside specified normal range. Prepared and signed by Arnel Amador [id number]
[2017-01-09] MEDS: ACETAMINOPHEN 325 MG TAB PO PRN (16:50)
[2017-01-09 20:00] VITALS: BP 126/63; PULSE 75; PULSE 82; RESP 18; TEMP 96.7; O2SAT 99
[2017-01-09] MEDS: AZITHROMYCIN INJ 500 MG in SODIUM CHLOR 0.9% 250 ML INJ 250 ML IV SCH (21:55)
[2017-01-09] MEDS: ATORVASTATIN 40 MG TAB PO SCH (21:56)
[2017-01-09] MEDS: AMITRIPTYLINE HCL 10 MG TAB PO SCH (21:59)
[2017-01-10] VITALS: BP 125/69; PULSE 62; RESP 19; TEMP 96.7; O2SAT 100
[2017-01-10 04:00] VITALS: BP 104/52; PULSE 61; RESP 18; TEMP 97.6; O2SAT 99
[2017-01-10 08:00] VITALS: BP 103/65; PULSE 74; RESP 20; TEMP 96.5; O2SAT 94
[2017-01-10 08:29] VITALS: PULSE 71
[2017-01-10] MEDS: PANTOPRAZOLE SOD 20 MG DELAYED RELEASE TAB PO SCH (08:57)
[2017-01-10] MEDS: ASPIRIN EC 81 MG TABEC PO SCH (08:57)
[2017-01-10] MEDS: CLOPIDOGREL 75 MG TAB PO SCH (08:57)
[2017-01-10] MEDS: GEMFIBROZIL 600 MG TAB PO SCH (08:57)
[2017-01-10] MEDS: METOPROLOL TARTRATE 25 MG TAB PO SCH (08:57)
[2017-01-10] MEDS: SODIUM CHLORIDE 0.9% FLUSH 5 ML FLUSH FLUSH SCH (08:58)
[2017-01-10] MEDS: BUDESONIDE-FORMOTEROL 160/4.5 MCG INHALER INH SCH (09:00)
[2017-01-10 11:10] VITALS: O2SAT 94
[2017-01-10] MEDS: ENOXAPARIN SODIUM 80 MG/0.8 ML SYRINGE SQ SCH (11:53)
[2017-01-10 12:00] VITALS: BP 108/66; PULSE 68; RESP 20; TEMP 96.7; O2SAT 97
--- NOTE | 2017-01-13 19:09 | HHI.DS ---
Discharge Summary Admission Date Jan 07, 2017 at 23:14 Discharge Date: Jan 10, 2017 Admitting Diagnosis R PE, Bilateral PNA (1) Chest pain ICD Code: R07.9 Diagnosis: Principal (2) PE (pulmonary thromboembolism) ICD Code: I26.99 Diagnosis: Principal (3) PNA (pneumonia) ICD Code: J18.9 Diagnosis: Principal (4) Lung cancer ICD Code: C34.90 Diagnosis: Secondary (5) Liver lesion ICD Code: K76.9 Diagnosis: Secondary Procedures none Brief History - From Admission This is an 81-year-old male with a PMH of Lung CA s/p Lobectomy, COPD, HTN, CAD s/p Stent 10/2016 and h/o DVT 6yrs ago who was brought to the ER by EMS w/ complaints of SOB and chest tightness since yesterday. States he walks 1 mile every day without difficulty, yesterday during his walk had c/o SOB and chest tightness. H/o Cardiac Stent in [place] in 10/2016, compliant w/ ASA/Plavix, states he follows w/ Rol[employer] St[employer], [employer] Community Liaison and Oncologist up in [place], lives there part of the year and in [facility] the other part of the year. Denies fever, chills or sick contacts. S/p ASA and NTG by EMS w/ some improvement en route. On arrival, BP 142/65, HR 74, O2 sat 95% on RA, Afebrile. CBC essentially unremarkable. Chemistry essentially unremarkable except for GFR 63. Troponin negative. EKG with no acute ischemia. CXR with suspected mass in right hilum, recommendation for CT Chest. CTA Pulm w/ small PE on right, patchy airspace disease bibasilar and large hypodense liver lesion w/ recommendation for outpatient MRI w/ and w/o contrast. Pt reports h/o DVT approx 6yrs ago following Lobectomy, was on Coumadin for 6 months and discontinued, no h/o DVT/ PE since that time. S/p Lovenox 80mg sq x1 in ER. CBC/BMP: 01/09/17 0535 01/09/17 [address] Angiography 01/07/172122 Signed Impressions: Service Date/Time: Saturday, January 07, 2017 22:00 - CONCLUSION: 1. Small pulmonary emboli on the right. Please see above. 2. Patchy airspace disease posteriorly in both lower lobes, nonspecific but most likely infectious or inflammatory. 3. Trace right pleural effusion. 4. Large hypodense lesion of the left hepatic lobe, indeterminate. Contrast-enhanced study of the abdomen is recommended non-emergently, preferably MRI with and without contrast. Hugh Gallego MD Chest X-Ray 01/07/171933 Signed Impressions: Service Date/Time: Saturday, January 07, 2017 20:15 - CONCLUSION: Suspected mass right hilum. CT the chest suggests a, preferably with intravenous contrast. There is mild patchy consolidation of both bases. Hugh Gallego MD PE at Discharge GENERAL: Pleasant elderly 81 yo male in no acute distress, appears tired. HEENT: PERRLA, EOMI. No scleral icterus or conjunctival pallor. No lid lag or facial droop. CARDIOVASCULAR: Regular rate and rhythm. No obvious murmurs to auscultation. No chest tenderness to palpation. RESPIRATORY: Occasional rhonchi, no wheezing. Clear to auscultation. Breath sounds equal bilaterally. GASTROINTESTINAL: Abdomen soft, non-tender, nondistended. BS normal. MUSCULOSKELETAL: Extremities without clubbing, cyanosis, or edema. No obvious deformities. NEUROLOGICAL: Awake, alert and oriented x4. No focal neurologic deficits. Moving both upper and lower extremities spontaneously. Pt update on day of discharge Feels much better. Ambulating in the room . No n/v/d/c. Denies chest pain. SOB improved. Clear sputum production no blood in it. 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 Chest pain likey secondary to PNA/PE, however will rule out ACS. Initial trop negative, EKG w/ no acute ischemia. Check serial cardiac enzymes, resume home ASA/Plavix, Statin and B-ignacio. MS prn for chest pain. PE: CXR w/ questionable right hilar mass, CTA Pulm w/ small PE on right and patchy airspace disease, images reviewed by me. H/o DVT 6yrs ago following Lobectomy, s/p Coumadin x6 months, no recurrent DVT/PE since that time. + intermittent lower extremity cramping. O2 sat stable. S/p Lovenox 80mg sq x1 in ER, continue w/ Lovenox q12h and initiation of chronic anticoagulation, Symbicort/DuoNeb prn for bronchospasm. Check Echo to eval for right heart strain. PNA: CTA Pulm w/ bibasilar consolidations, +wet non-productive cough on exam and rhonchi, S/p Rocephin/Zithro in ER, continue IV Abx, DuoNeb prn. Lung CA: s/p Lobectomy 6yrs ago, following w/ Oncologist in [place], currently stable per pt. Chronic respiratory failure. Cont O2 supplement. Liver Lesion: CTA Pulm w/ evidence of large hypodense lesion of left hepatic lobe, recommendation for MRI Abd/Pelvis w/ and w/o contrast, findings discussed w/ patient and he is now aware of liver lesion. States he plans to follow up w / his physicians in [place] when he returns home. Consult PT DVT Prophylaxis: On Lovenox for acute PE, switch to xarelto at [place]. Cm for d/c planning as needed. Discussed with the patient, nurse. Patient improved, he was discharged in fairly stable condition. Patient was adviced to follow up as OP with his PCP, pulm doctor, cardiology and with his hem/onc Dr, all his doctors are in [place]. Patient says he will live to [place] in 2 weeks. Pt Condition on Discharge: Fair Discharge Disposition: Disch w/ Home Health Serv Discharge Time: > 30 minutes Discharge Instructions DIET: Follow Instructions for: Heart Healthy Diet Activities you can perform: Regular-No Restrictions Follow up Referrals: PCP Follow-up - 3-5 Days Pulmonology - 1 Week New Medications: Cefuroxime (Ceftin) 500 Mg Tab 500 MG PO BID Infection #14 Ref 0 TAB Guaifenesin ER 12 HR (Mucinex ER 12 HR) 600 Mg Chata 600 MG PO BID Chest Congestion/Cough #10 Ref 0 TAB Rivaroxaban Starter Pack 15 & 20 mg (Xarelto Starter Pack 15 & 20 mg) 1 Tab Tab 1 TAB PO DIRECTED Blood Clot Prevention #60 Ref 0 PACK Continued Medications: Amitriptyline (Amitriptyline) 10 Mg Tab 10 MG PO HS Control Depression #30 Ref [address] (Aspirin 81) 81 Mg Tabdr 81 MG PO DAILY Ref 0 TAB Atorvastatin (Lipitor) 40 Mg Tab 40 MG PO HS Cholesterol Management #30 Ref 0 TAB Clopidogrel (Plavix) 75 Mg Tab 75 MG PO DAILY Blood Clot Prevention #30 Ref 0 TAB Gemfibrozil (Gemfibrozil) 600 Mg Tab 600 MG PO DAILY Take 30 minutes prior to breakfast and dinner. #60 Ref 0 TAB Metoprolol Tartrate (Metoprolol Tartrate) 75 Mg Tab 25 MG PO BID #30 Ref 0 TAB Omeprazole (Omeprazole) 20 Mg Tab 20 MG PO DAILY #30 Ref 0 TAB Ava Chavez MD Jan 13, 2017 19:08
== END 2017-01-10 15:54 | disposition home health service (06) | DRG 175 ==
LOC: NEPC 19:15 → NEDA 23:14 → HOCA 01-08 06:04
PROVIDERS: ADMIT Hospitalist; ATTEND Hospitalist
DX: I26.99 Other pulmonary embolism without acute cor pulmonale (principal); J44.0 Chronic obstructive pulmonary disease with (acute) lower respiratory infection; J18.9 Pneumonia, unspecified organism; J96.10 Chronic respiratory failure, unspecified whether with hypoxia or hypercapnia; C34.90 Malignant neoplasm of unspecified part of unspecified bronchus or lung; Z90.2 Acquired absence of lung [part of]; K76.9 Liver disease, unspecified; Z86.718 Personal history of other venous thrombosis and embolism; I25.10 Atherosclerotic heart disease of native coronary artery without angina pectoris; Z95.5 Presence of coronary angioplasty implant and graft; Z79.02 Long term (current) use of antithrombotics/antiplatelets; Z79.82 Long term (current) use of aspirin; I10 Essential (primary) hypertension; K21.9 Gastro-esophageal reflux disease without esophagitis; Z87.891 Personal history of nicotine dependence; G47.30 Sleep apnea, unspecified; Z85.46 Personal history of malignant neoplasm of prostate; E78.00 Pure hypercholesterolemia, unspecified; Z86.73 Personal history of transient ischemic attack (TIA), and cerebral infarction without residual deficits
CPT/HCPCS: 71020; 71275; 80048; 80053; 82550; 82552; 83735; 84484; 85025; 85610; 85730; 87040; 87070; 87205; 87449; 93005; 93306; 94640; 94664; J0456; J0696; J1650; J7050; Q9967